=== PATIENT | female | born 1950 | race Caucasian/White ===

== ENCOUNTER 2017-01-02 05:21 | Observation (INO) | payer BC ==
[2017-01-02] VITALS (10 sets, daily range): BP systolic 136–153; BP diastolic 82–88; PULSE 64–108; RESP 16–20; TEMP 97.5–98.8; O2SAT 94–99
[~2017-01-02] VITALS: Ht 162.6 cm; Wt 93.3 kg
[~2017-01-02 05:21] MED LIST: TIMO0.5S30 EACH EYE; ZYPR5TAB PO
[2017-01-02] MEDS ORDERED: METOPROLOL TARTRATE 25 MG TAB PO PRN (05:45)
[2017-01-02] MEDS ORDERED: POVIDONE IODINE 5% (ANTISEPSIS KIT) 4 APPLICATIONS EACH NARE PRN (05:45)
[2017-01-02] MEDS ORDERED: CHLORHEXIDINE GLUCONATE 2 % 1 PACK (2 CLOTHS) TOPICAL PRN (05:45)
[2017-01-02] MEDS ORDERED: SODIUM CHLORID 0.9% 500 ML IV PRN (05:45)
[2017-01-02] MEDS ORDERED: HEPARIN SODIUM - SQ 10,000 UNITS/ML VIAL SQ SCH (05:45)
[2017-01-02] MEDS ORDERED: LACTATED RINGER'S 1000 ML IV PRN (05:45)
[2017-01-02] MEDS: ceFAZolin 2 GM PREMIX 50 ML IV SCH ×2 (07:05→09:42)
[2017-01-02] MEDS ORDERED: LIDOCAINE 1%/EPINEPHrine 1:100,000 SOLN 20 ML VIAL ONE (07:31)
[2017-01-02] MEDS ORDERED: METHYLENE BLUE 10 MG/ML VIAL OTHER ONE (10:29)
[2017-01-02] MEDS ORDERED: diphenhydrAMINE HCL 50 MG/ML VIAL ONE (11:05)
[2017-01-02] MEDS ORDERED: DO NOT ADM ANY ANTICOAGULANT DRUGS PRN (11:23)
[2017-01-02] MEDS ORDERED: SODIUM CHLORIDE 0.9% FLUSH 10 ML FLUSH IV FLUSH PRN (11:30)
[2017-01-02] MEDS ORDERED: ONDANSETRON HCL 4 MG/2 ML VIAL IVP PRN (11:30)
[2017-01-02] MEDS ORDERED: diphenhydrAMINE HCL 25 MG CAP PO PRN (11:30)
[2017-01-02] MEDS ORDERED: HYDROmorphone HCL PF 1 MG/ML VIAL IVP PRN (11:30)
[2017-01-02] MEDS ORDERED: LORazepam 0.5 MG TAB PO PRN (11:30)
[2017-01-02] MEDS ORDERED: PROPOFOL 200 MG/20 ML AMP IV ONE (12:00)
[2017-01-02] MEDS ORDERED: ONDANSETRON HCL 4 MG/2 ML VIAL IV PUSH ONE (12:00)
[2017-01-02] MEDS ORDERED: NEOSTIGMINE 3 MG/3 ML SYR IV ONE (12:00)
[2017-01-02] MEDS ORDERED: DEXAMETHASONE SOD PHOS 4 MG/ML VIAL IV ONE (12:00)
[2017-01-02] MEDS ORDERED: MIDAZOLAM HCL 2 MG/2 ML VIAL IV ONE (12:00)
[2017-01-02] MEDS ORDERED: LACTATED RINGER'S 1000 ML INJ 1,000 ML IV ONE (12:00)
[2017-01-02] MEDS ORDERED: ROCURONIUM INJ 50 MG/5 ML SYRINGE IV PUSH ONE (12:00)
[2017-01-02] MEDS ORDERED: ePHEDrine/NS 25 MG/5 ML SYR IV ONE (12:00)
[2017-01-02] MEDS ORDERED: LIDOCAINE HCL 1% PF 5 ML SYRINGE OTHER ONE (12:00)
[2017-01-02] MEDS ORDERED: GLYCOPYRROLATE 1 MG/5 ML SYRINGE IV PUSH ONE (12:00)
[2017-01-02] MEDS ORDERED: PILL SPLITTER OTHER PRN (12:45)
[2017-01-02] MEDS: D5-1/2 NS + KCL 20 MEQ INJ 1,000 ML IV SCH (14:49)
[2017-01-02] MEDS ORDERED: OLANZapine 5 MG TAB PO SCH (21:00)
[2017-01-02] MEDS: TIMOLOL MALEATE 0.5% OPHT SOLN 5 ML BTL EACH EYE SCH (21:00)
[2017-01-02] MEDS ORDERED: ZYPREXA 5 MG PO SCH (22:06)
[2017-01-03] VITALS (11 sets, daily range): BP systolic 120–127; BP diastolic 78–81; PULSE 66–70; RESP 20; TEMP 97.8–98.8; O2SAT 97
[2017-01-03] MEDS: D5-1/2 NS + KCL 20 MEQ INJ 1,000 ML IV SCH (00:38)
[2017-01-03] MEDS: SODIUM CHLORIDE 0.9% FLUSH 10 ML FLUSH IV FLUSH SCH ×2 (00:44→09:11)
--- NOTE | 2017-01-03 07:01 | PD.PN.STU ---
Subjective Remarks Patient is a 66 year old female presenting for post-op follow up following robot assisted laparoscopic hysterectomy with BSO The procedure was done in order to treat endometrial intraepithelial neoplasia and post-menopausal bleeding She complains of minimal soreness, about a 3/10 in the pelvic area and some fatigue she got one dose of hydromorphone yesterday afternoon for pain and hasn't needed a second dose minor vaginal bleeding, but improving some dysuria, but improving hives rash has resolved, no itching hasn't had a BM or flatus yet ambulating fine to and from the bathroom with little trouble no fever,chills, CP, SOB, edema, vision changes Remaining ROS negative Objective Vitals Vital Signs Date Time Temp Pulse Resp B/P (MAP) Pulse Ox O2 Delivery O2 Flow Rate FiO2 01/03/17 06:00 69 01/03/17 05:00 66 01/03/17 04:19 97.8 66 20 127/81 (96) 97 01/03/17 04:00 68 01/03/17 03:00 66 01/03/17 02:00 68 01/03/17 01:00 68 01/03/17 00:45 98.8 67 20 127/78 (94) 97 01/03/17 00:00 70 01/02/17 23:00 103 01/02/17 22:00 66 01/02/17 21:00 64 01/02/17 20:00 98.8 64 20 143/87 (105) 97 01/02/17 20:00 64 01/02/17 19:00 108 01/02/17 17:00 74 01/02/17 16:00 74 01/02/17 16:00 97.8 94 18 141/82 (101) 94 01/02/17 16:00 76 01/02/17 16:00 97.9 92 20 136/88 (104) 01/02/17 14:02 97.5 65 16 153/88 (109) 99 01/02/17 13:50 97.5 65 16 153/88 (109) 99 01/02/17 13:40 97.5 67 16 142/67 (92) 99 Nasal Cannula 2 01/02/17 13:30 67 15 144/67 (92) 99 Nasal Cannula 2 01/02/17 13:00 57 15 140/69 (92) 100 Nasal Cannula 2 01/02/17 13:00 97.5 65 16 153/88 (109) 99 01/02/17 12:30 97.0 60 16 139/69 (92) 100 Nasal Cannula 2 01/02/17 12:15 66 17 139/66 (90) 100 Nasal Cannula 2 01/02/17 12:00 70 15 132/72 (92) 100 Nasal Cannula 2 01/02/17 11:45 96.8 70 15 128/74 (92) 100 Nasal Cannula 2 01/02/17 11:30 74 15 122/77 (92) 100 Nasal Cannula 2 01/02/17 11:28 96.0 75 15 134/71 (92) 99 Nasal Cannula 2 I/O 01/02/17 01/02/17 01/02/17 01/03/17 01/03/17 01/03/17 07:00 15:00 23:00 07:00 15:00 23:00 Intake Total 2225 ml 940 ml 240 ml Output Total 300 ml 850 ml Balance 1925 ml 90 ml 240 ml Intake Oral 640 ml 240 ml IV Total 225 ml 300 ml Other 2000 ml Output Urine Total 100 ml 850 ml Estimated Blood Loss 200 ml # Voids 1 2 # Sanitary Pads 1 Pads 1 Pads Other Results Current Medications Medications (Trade) Dose Ordered Sig/Manohar Route Start Time Stop Time Status Last Admin Lactated Ringer's 1,000 ml @ 30 mls/hr Q24H PRN IV 01/02/17 05:45 01/05/17 05:44 01/02/17 06:00 Sodium Chloride 500 ml @ 30 mls/hr [id number] PRN IV 01/02/17 05:45 01/05/17 05:44 (Lopressor) 25 mg BELT POLISHER PRN PO 01/02/17 05:45 01/05/17 05:44 (Betadine 5% Antisepsis Kit) 1 applic BELT POLISHER PRN EACH NARE 01/02/17 05:45 01/05/17 05:44 01/02/17 06:00 (Chlorhexidine 2% Cloth) 3 pack BELT POLISHER PRN TOPICAL 01/02/17 05:45 01/05/17 05:44 01/02/17 05:40 (ZyPREXA) 5 mg HS PO 01/02/17 21:00 (Timoptic 0.5% Opth Soln) 1 drop BID EACH EYE 01/02/17 21:00 Potassium Chloride/Dextrose/ Sod Cl 1,000 ml @ 75 mls/hr [id number] IV 01/02/17 11:18 (NS Flush) 2 ml UNSCH PRN IV FLUSH 01/02/17 11:30 (NS Flush) 2 ml BID IV FLUSH 01/02/17 21:00 01/03/17 00:44 (Dilaudid Pf Inj) 0.5 mg Q4H PRN IVP 01/02/17 11:30 01/02/17 16:19 (Benadryl) 25 mg Q4H PRN PO 01/02/17 11:30 (Zofran Inj) 4 mg Q6H PRN IVP 01/02/17 11:30 (Ativan) 0.25 mg Q8H PRN PO 01/02/17 11:30 (Roxicodone) 5 mg Q4H PRN PO 01/02/17 11:30 Miscellaneous Information ALL NURSING DEPARTME... UNSCH PRN .XX 01/02/17 11:23 01/03/17 11:22 (Pill Splitter) 1 ea UNSCH PRN OTHER 01/02/17 12:45 Patient Own Medication PT OWN MED: ZYPREXA (OLANZAPI... HS PO 01/02/17 22:06 01/03/17 00:44 Laboratory Tests Test 01/03/17 05:38 Red Blood Count 3.95 MIL/MM3 (4.00-5.30) Neutrophils (%) (Auto) 71.7 % (16.0-70.0) Monocytes (%) (Auto) 9.5 % (0.0-8.0) Objective Remarks O: Gen: WDWN, NAD, smiling and pleasant HEENT: pupils equal and reactive to light, oral and nasal mucosa pink and moist Neck: no LAD CVD: nl S1, S2, no murmurs, rubs or gallops Lungs: CTA, no wheezing or rhonchi Abdomen: soft nontender, non-distended; positive bowel sounds. Skin: 1+ edema over bilateral anterio-tibial region; no rashes or cyanosis. no erythema, warmth or inflammation surrounding the incision sites. Incision sites appear to be closed and intact. Neuro: alert and oriented x3, CN 2-12 intact Procedures Laboratory Tests Test 01/03/17 05:38 Red Blood Count 3.95 MIL/MM3 (4.00-5.30) Neutrophils (%) (Auto) 71.7 % (16.0-70.0) Monocytes (%) (Auto) 9.5 % (0.0-8.0) Medications and IVs Current Medications Medications (Trade) Dose Ordered Sig/Manohar Route Start Time Stop Time Status Last Admin Lactated Ringer's 1,000 ml @ 30 mls/hr Q24H PRN IV 01/02/17 05:45 01/05/17 05:44 01/02/17 06:00 Sodium Chloride 500 ml @ 30 mls/hr [id number] PRN IV 01/02/17 05:45 01/05/17 05:44 (Lopressor) 25 mg BELT POLISHER PRN PO 01/02/17 05:45 01/05/17 05:44 (Betadine 5% Antisepsis Kit) 1 applic BELT POLISHER PRN EACH NARE 01/02/17 05:45 01/05/17 05:44 01/02/17 06:00 (Chlorhexidine 2% Cloth) 3 pack BELT POLISHER PRN TOPICAL 01/02/17 05:45 01/05/17 05:44 01/02/17 05:40 (ZyPREXA) 5 mg HS PO 01/02/17 21:00 (Timoptic 0.5% Opth Soln) 1 drop BID EACH EYE 01/02/17 21:00 Potassium Chloride/Dextrose/ Sod Cl 1,000 ml @ 75 mls/hr [id number] IV 01/02/17 11:18 (NS Flush) 2 ml UNSCH PRN IV FLUSH 01/02/17 11:30 (NS Flush) 2 ml BID IV FLUSH 01/02/17 21:00 01/03/17 00:44 (Dilaudid Pf Inj) 0.5 mg Q4H PRN IVP 01/02/17 11:30 01/02/17 16:19 (Benadryl) 25 mg Q4H PRN PO 01/02/17 11:30 (Zofran Inj) 4 mg Q6H PRN IVP 01/02/17 11:30 (Ativan) 0.25 mg Q8H PRN PO 01/02/17 11:30 (Roxicodone) 5 mg Q4H PRN PO 01/02/17 11:30 Miscellaneous Information ALL NURSING DEPARTME... UNSCH PRN .XX 01/02/17 11:23 01/03/17 11:22 (Pill Splitter) 1 ea UNSCH PRN OTHER 01/02/17 12:45 Patient Own Medication PT OWN MED: ZYPREXA (OLANZAPI... HS PO 01/02/17 22:06 01/03/17 00:44 A/P Assessment and Plan 1: Endometrial IN and postmenopausal bleeding - 66year old female presenting for post-op on robotic assisted laparoscopic hysterectomy with BSO shes doing well, no signs of infection, ambulating well with minimal pain - plan to discharge her later on today given her labs come back normal - RTC in 2 weeks for follow up appointment with Dr. Pierre to discuss the pending results of the pathology and further necessary steps. Ruthy España M3 Jan 03, 2017 07:01
[2017-01-03 07:02] LABS: AUTOMATED NEUTROPHIL # 4.6 TH/MM3 (1.8-7.7); BASOPHIL % 0.1 % (0.0-2.0); HEMATOCRIT 38.5 % (35.0-46.0); HEMO FLAGS DIFF FINAL; LYMPH % 18.7 % (9.0-44.0); LYMPHOCYTE # 1.2 TH/MM3 (1.0-4.8); MEAN CELL VOLUME 97.4 FL (80.0-100.0); MEAN CORPUSCULAR HEMOGLOBIN 33.4 PG (27.0-34.0); MEAN CORPUSCULAR HGB CONC 34.3 % (32.0-36.0); MONO % 9.5 % (0.0-8.0); NEUT % 71.7 % (16.0-70.0); PLATELET COUNT 247 TH/MM3 (150-450); RED BLOOD COUNT 3.95 MIL/MM3 (4.00-5.30); RED CELL DISTRIBUTION WIDTH 14.1 % (11.6-17.2); WHITE BLOOD COUNT 6.3 TH/MM3 (4.0-11.0)
[2017-01-03 07:06] LABS: BICARBONATE 22.5 MEQ/L (21.0-32.0); POTASSIUM 3.6 MEQ/L (3.5-5.1)
[2017-01-03] MEDS ORDERED: OXYC-392 PO (07:58)
[2017-01-03] MEDS: TIMOLOL MALEATE 0.5% OPHT SOLN 5 ML BTL EACH EYE SCH (09:11)
--- NOTE | 2017-01-03 18:17 | MP ---
cc: TAVARES BEAN KELLY L. MD BAGWELL, MEGAN MD DATE OF SURGERY 01/02/17 PREOPERATIVE DIAGNOSIS Complex endometrial hyperplasia, postmenopausal bleeding, endometrial polyps POSTOPERATIVE DIAGNOSIS Complex endometrial hyperplasia, postmenopausal bleeding, endometrial polyps PROCEDURE Robotic-assisted laparoscopic hysterectomy and bilateral salpingo-oophorectomy, repair of vaginal lacerations. SURGEON Tree Pierre MD CLEANING STAFF SUPERVISOR [place] dental assistant medical assistant ANESTHESIA General endotracheal anesthesia ESTIMATED BLOOD LOSS 200 mL IV FLUIDS 2000 mL URINE OUTPUT 500 mL HISTORY A 66-year-old female postmenopausal bleeding. Biopsy showed polyp with complex atypical hyperplasia. She was counseled regarding options and was in favor of definitive surgical management. She is seen again in the preop holding area where the findings and recommendations are again discussed. Questions were answered. She expressed good understanding and agreed to move forward with surgery. FINDINGS On findings noted on exam under anesthesia, she has a markedly narrowed pelvic outlet, nulliparous, atrophic. The cervix itself is small. The uterine cavity sounds to 9.5 cm. In the peritoneal cavity, the uterus grossly appears normal. There is a fairly long cervix. The body of the uterus is normal in appearance, tubes and ovaries are grossly normal. There was no appreciably enlarged pelvic or para-aortic lymph nodes. No peritoneal implants. There are minimal adhesions in the pelvis with some diverticulum noted. Preliminary pathology shows the uterus with no overt evidence of invasive disease. No overt evidence of malignancy. There are what appeared to be some benign-appearing superficial polyps. PROCEDURE IN DETAIL She was taken to the operating room, placed in dorsal lithotomy position after general endotracheal anesthesia was administered. Time-out was undertaken. She was identified by sight recognition and hospital ID bracelet and the proposed procedure was reviewed and confirmed. She was carefully positioned in padded Fantasma stirrups. Her arms were padded and secured to the sides. She was further secured to the operating table with egg crate padding and tape in across chest over the shoulder fashion. She was prepped and draped sterile fashion and placed in high lithotomy position. Exam was performed with findings as described above. A normal-size speculum could not be admitted into the vagina and so small held right angle retractors were used. The cervix was identified and grasped, put on countertraction. A lacrimal probe was used to identify the axis of the cervical canal and uterus. The cervix was dilated and the uterine cavity was sounded. A small V-Care manipulator was inserted and secured in usual fashion. Extra lubricant and angulation of the cap of the V-Care manipulator was required to introduce through the introitus. Bleeding was noted at the introitus. Superficial laceration which was reapproximated rendered hemostatic with interrupted 3-0 Vicryl sutures. A Castanon catheter was placed in the bladder. She was returned to low lithotomy position. Change of sterile gloves was undertaken. We confirmed that an orogastric tube was in the stomach on suction. With manual elevation of the abdominal wall and direct laparoscopic visualization, a 5-mm cannula was introduced into the left upper quadrant and an atraumatic entry was confirmed. Carbon dioxide gas was insufflated and, under visualization, a 12-mm cannula was placed in midline above the umbilicus, 8 mm cannulas placed in the right upper quadrant, left lateral quadrant and the original 5 exchanged for an 8-mm cannula. She was placed in intermediate Trendelenburg position. Steep Trendelenburg was avoided. The peritoneal washings were obtained for cytology. The anatomy was surveyed with findings as described above. The small bowel was folded back on its mesenteric root and three Ray-Nimo sponges were placed around the root of the small bowel mesentery. The robotic system brought into the operative field and attached in usual fashion. Monopolar scissors, fenestrated bipolar forceps and Prograsp manipulators were placed in arms #1, 2 and 3 respectively and I took my place at the surgeon's console. Right round ligament isolated, cauterized, transected. The anterior and posterior leafs of the broad ligament were opened. The right ureter was identified. The right infundibulopelvic ligament was isolated. The infundibulopelvic ligament was cauterized and transected. Posterior peritoneum opened along the left side of uterus and cervix. The left vesicouterine peritoneum was dissected off the lower uterine segment and cervix, although the plane of the bladder flap was not readily identifiable there was some scar tissue in this region. The right uterine vessels were skeletonized and cauterized. Attention was directed toward the left side where the left round ligament was isolated, cauterized, transected. The anterior and posterior leafs of the broad ligament were opened. Adhesions were taken down to mobilize the bowel from its attachment to the left pelvic sidewall. Left ureter was identified. Left infundibulopelvic ligament was isolated. The intervening peritoneum was opened. The infundibulopelvic ligament was cauterized and transected. Posterior peritoneum opened along the left side of uterus and cervix and the left vesicouterine peritoneum and scar tissue was taken down off the left the uterus and cervix. The left uterine vessels were skeletonized and cauterized. To further identify the bladder, the bladder was filled with saline dyed with methylene blue 150 mL. This distended the bladder, helped identify the bladder, clarified the vesicouterine plane which then allowed further dissection to remove the bladder well below the level of the cervix and small bleeders due to irritation to the vaginal mucosa were rendered hemostatic with bipolar cautery. Now the left uterine vessels were transected. The cardinal, paracervical and uterosacral ligaments were isolated, cauterized and transected in stepwise fashion, thereby freeing attachments along the left side of the uterus and cervix. Attention was directed toward the right side where similarly the right uterine vessels were transected. The cardinal, paracervical and uterosacral ligaments were isolated, cauterized and transected in a stepwise fashion thereby freeing the attachments along the right side of the uterus and cervix. Circumferential colpotomy was performed following the cap of the V-Care manipulator. I left the surgeon's console to help facilitate delivery of the specimen. She was placed in high lithotomy position. Again the markedly stenotic vaginal outlet posed some challenges to delivering the V-Care manipulator and the specimen, but by rotating the cervical cap of the V-Care manipulator and having artery sharply dissected to reduce the size of the secondary cap on the V-Care, allowed delivery of the manipulator and specimen transvaginally and a pneumo-occluder balloon was placed in the vagina to maintain pneumoperitoneum. I returned to the surgeon's console. Instruments 1 and 3 exchanged for needle drivers as a 0 Vicryl suture was introduced. The vaginal cuff was closed starting at the left corner full-thickness closure incorporating the edge of the uterosacral ligament and posterior peritoneum, tied via instrument tie. The suture was held on countertraction as a running continuous full-thickness closure, was carried across the vaginal apex to the contralateral corner where it was similarly fixed and secured, tied and the needle was cut and removed. Pelvis was thoroughly irrigated. Small bleeders rendered hemostatic with bipolar cautery. There was a good margin between the bladder edge and the vaginal cuff suture line. Good peristalsis of ureters bilaterally. The pathology came back showing no evidence of malignancy and it was felt that all reasonable surgical objectives had been completed. Accordingly, the robotic instruments were removed. The robotic system was disengaged from the operative field. I reentered the bedside under sterile condition. Each of the three Ray-Nimo sponges that had been placed were now removed through the 12-mm cannula. Each were inspected and noted to be removed in their entirety. Visual inspection of the peritoneal cavity revealed there to be no remaining foreign objects. Preliminary counts were correct. Sites were hemostatic. The remaining cannulas were withdrawn. Carbon dioxide gas was removed. 3-0 Vicryl subcutaneous, 3-0 Vicryl subcuticular and Steri-Strips were used to close these incisions. She was returned to dorsal lithotomy position. The vaginal cuff suture line was intact and the vaginal cuff suture line was hemostatic. However, they were vaginal lacerations along the left vaginal sidewall and near the introitus. These were rendered hemostatic with [id number] 2-0 Vicryl sutures. The remaining Aman hemostatic agent was placed in the vaginal apex. There was still some generalized oozing due to diffuse mucosal irritation from the atrophic changes and a dissolvable piece of Surgicel was used to pack the vaginal canal to help assist in continued hemostasis and, after inspection for several minutes, all sites were completely hemostatic. She was returned to dorsal supine position and was pending reversal of anesthesia. Some erythematous rash and hives were noted on the abdomen, initially thought possibly a sensitivity to the Betadine prep. However, when the sterile sheets and covers were removed these same skin changes were noted on the face, neck, hips and extremities suggesting possibly more of a systemic reaction. Anesthesia was made aware. She was given Benadryl and steroids in the recovery room. The etiology of the rash is uncertain. She was given Ancef preoperatively. Anesthesia indicates that vecuronium can sometimes cause a rash. Her family member and subsequently Lynne Lozano herself were made aware of these findings and that she may wish to add these medications to the list of possible sensitivities or allergies. She was hemodynamically stable and taken to the operating room as I left to go speak to her sister in the family waiting area. However, she was not present but I had the opportunity to speak with her via phone a bit later. MD PARUL Earl/ /8:12 AM /5:44 PM TAMMY
--- NOTE | 2017-01-04 19:51 | MD ---
cc: TAVARES BEAN KELLY L. MD BAGWELL, MEGAN MD ADMISSION DATE: 01/02/2017 DISCHARGE DATE: 01/03/2017 PROCEDURE 01/02/2017 robotic-assisted laparoscopic hysterectomy, bilateral salpingo-oophorectomy. DIAGNOSIS Complex atypical endometrial hyperplasia and endometrial polyps. HOSPITAL COURSE She did well in the early postoperative period, remained hemodynamically stable. A rash was noted after waking from surgery. The etiology was uncertain. She was given Benadryl and steroids, this seemed to have resolved. She is made aware of the fact that the reason for the sensitivity is uncertain but she may wish to consider the possibility that it was a sensitivity to Ancef antibiotic which was given preoperatively, although other possibilities exist. Nevertheless, this resolved. She had no systemic symptoms and the hives and rash on the skin has dramatically improved. No chest pain, shortness of breath or other concerns. OBJECTIVE In's and out's [id number]. H&H 13.2 and 38.5, platelet count 247. Electrolytes essentially normal, potassium 3.6, BUN and creatinine 7, 0.75. PHYSICAL EXAMINATION VITAL SIGNS: Afebrile, pulse 66-69, blood pressure 127/78, O2 saturation greater than or equal to 97%. GENERAL: Alert, oriented x3. LUNGS: Clear. CARDIOVASCULAR: Regular rate and rhythm. ABDOMEN: Soft. Incisions clean and dry. SKIN: Erythematous rash and hives are dramatically improved. GAS JOCKEY: Light spotting, no active bleeding. ASSESSMENT Postop day #1: Findings at the time of surgery, preliminary pathology discussed and reviewed. Extra suturing in the vagina due to the markedly narrow pelvic outlet and vaginal lacerations with transvaginal specimen delivery were discussed and reviewed. She understands she has extra sutures in the vagina in addition to the vaginal cuff as well as dissolvable hemostatic agent placed in the vagina so that some light bleeding or small amount of discharge is not unexpected. Activities restrictions discussed and reviewed and she is made aware of potential sensitivity to Ancef, although the sensitivity that caused her rash is not entirely certain. PLAN Anticipate she will be able to be discharged to home. She is to resume prior medications. She will have a prescription for oxycodone (without acetaminophen) for pain. She is to contact our office to schedule follow up in 2 weeks or to contact us sooner should she have any questions or problems. MD ADAN Earl /8:06 AM /7:41 PM
== END 2017-01-03 10:36 | disposition home or self-care (01) ==
LOC: HSDC 05:21 → HSDI 11:22 → HCIS 13:43
PROVIDERS: ADMIT Obstetrics & Gynecology Gynecologic Oncology; ATTEND Obstetrics & Gynecology Gynecologic Oncology
DX: N85.02 Endometrial intraepithelial neoplasia [EIN] (principal)
CPT/HCPCS: 00840; 58552; 80048; 85025; 86850; 86900; 86901; 88307; 88331; 94150; 96374; G0378; J0690; J1100; J1170; J1200; J1644; J2250; J2405; J2710; J3010; J7120